=== PATIENT | female | born 2000 | race Caucasian/White ===

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

== ENCOUNTER 2019-06-19 21:31 | Emergency (ER) | payer OTHER ==
[2019-06-19 21:50] VITALS: BP 117/76; PULSE 89; RESP 18; TEMP 99
[2019-06-19] MEDS ORDERED: SULFAMETHOX-TMP 800-160MG 1 EACH TAB PO STA (22:26)
--- NOTE | 2019-06-19 22:26 | ED ---
Skin/Abscess/FB HPI - General Chief complaint: Skin/Abscess/Foreign Body Stated complaint: female gu Time Seen by Provider: 06/19/19 21:52 Source: patient Mode of arrival: ambulatory Limitations: no limitations - History of Present Illness Initial comments: this patient is a 19-year-old woman who presents to be evaluated for a lump in the perineal area. She states she had noticed it yesterday area she states it was approximate size of a quarter. The lump was tender and she states it was limiting how she was walking and sitting. Patient states that she went to use the bathroom and it seemed to start bleeding. Now she presents because every time she goes the bathroom and wipes herself, there is blood on the tissue. She states that the lump has decreased in size and is now about the size of a pea. She states that most of the tenderness has gone away as well. No fever or chills. No change in urination or bowel movements. No vaginal discharge. MD complaint: abscess/boil Onset/Timin -: days(s) Tetanus Up to Date: yes Location: genitals Severity: mild Quality: dull Consistency: now resolved Improves with: none Worsens with: none Context: none Associated symptoms: denies other symptoms Treatments Prior to Arrival: none - Related Data Home Medications Medication Instructions Recorded Confirmed Ibuprofen [Motrin] 400 mg PO Q6HR PRN 12/25/16 12/25/16 Previous Rx's Medication Instructions Recorded Ciprofloxacin HCl [Cipro] 500 mg PO Q12HR #14 tablet 12/25/16 Phenazopyridine [Pyridium] 100 mg PO TID #9 tablet 12/25/16 Sulfamethox-Tmp 800-160Mg [Bactrim 1 each PO Q12HR #14 tab 06/19/19 Ds] Allergies Allergy/AdvReac Type Severity Reaction Status Date / Time amoxicillin Allergy Unknown Verified 06/19/19 21:50 Review of Systems ROS Statement: Those systems with pertinent positive or pertinent negative responses have been documented in the HPI. ROS Other: All systems not noted in ROS Statement are negative. Constitutional: Denies: fever, chills Respiratory: Denies: cough, dyspnea Cardiovascular: Denies: chest pain, palpitations Gastrointestinal: Denies: abdominal pain, vomiting, diarrhea, constipation Genitourinary: Denies: dysuria, hematuria Musculoskeletal: Denies: back pain Skin: Reports: as per HPI, lesions Hematological/Lymphatic: Denies: easy bleeding Past Medical History Past Medical History: No Reported History History of Any Multi-Drug Resistant Organisms: None Reported Past Surgical History: No Surgical Hx Reported Additional Past Surgical History / Comment(s): dental surgery Past Psychological History: No Psychological Hx Reported Smoking Status: Never smoker Past Alcohol Use History: Occasional Past Drug Use History: None Reported General Exam Limitations: no limitations General appearance: alert, in no apparent distress Head exam: Present: atraumatic, normocephalic Respiratory exam: Present: normal lung sounds bilaterally. Absent: respiratory distress, wheezes, rales, rhonchi, stridor Cardiovascular Exam: Present: regular rate, normal rhythm, normal heart sounds. Absent: systolic murmur, diastolic murmur, rubs, gallop GI/Abdominal exam: Present: soft. Absent: distended, tenderness, guarding, rebound, rigid, mass External exam: Present: lesions. Absent: erythema, swelling, lacerations, ecchymosis (patient appears to have had a small cutaneous abscess/sebaceous cyst that has spontaneously drained. No real tenderness. Minimal erythema. No warmth.) Skin exam: Present: warm, dry, intact, normal color. Absent: rash Course Vital Signs 06/19/19 21:44 Temperature 99 F Pulse Rate 89 Respiratory 18 Rate Blood Pressure 117/76 O2 Sat by Pulse 99 Oximetry Disposition Clinical Impression: Sebaceous cyst of labia Disposition: HOME SELF-CARE Condition: Good Instructions (If sedation given, give patient instructions): Cyst (ED) Prescriptions: Sulfamethox-Tmp 800-160Mg [Bactrim Ds] 1 each PO Q12HR #14 tab Is patient prescribed a controlled substance at d/c from ED?: No Referrals: Any Vázquez DO [Primary Care Provider] - 1-2 days
== END 2019-06-19 22:35 | disposition home or self-care (01) ==
LOC: EC 21:31
DX: N94.89 Other specified conditions associated with female genital organs and menstrual cycle (principal); Z88.0 Allergy status to penicillin
CPT/HCPCS: 99283